=== PATIENT | female | born 1945 | race Caucasian/White ===

== ENCOUNTER 2020-11-13 17:52 | Emergency (ER) | payer MEDICARE, BC ==
[~2020-11-13] VITALS: Ht 154.9 cm; Wt 56.7 kg
[2020-11-13] MEDS ORDERED: CLOP75TA15 PO (18:15)
[2020-11-13] MEDS ORDERED: ASPI81TA31 PO (18:15)
--- NOTE | 2020-11-13 18:45 | NUR ---
PT IS IN ROOM #3. DR ELENA EVALUATED THE PT.
--- NOTE | 2020-11-13 18:59 | NUR ---
REPORT WAS GIVEN TO [employer] MANAGER RN.
[2020-11-13] MEDS ORDERED: MAG HYDROX/AL HYDROX/SIMETH 30 ML LIQUID UDC PO ONE (19:15)
[2020-11-13] MEDS ORDERED: MAG HYDROX/AL HYDROX/SIMETH 30 ML LIQUID UDC ONE (19:26)
[2020-11-13] MEDS ORDERED: MAGNESIUM HYDROXIDE 30 ML LIQUID UDC PO ONE (19:45)
[2020-11-13] MEDS ORDERED: MAGNESIUM HYDROXIDE 30 ML LIQUID UDC ONE (19:53)
[2020-11-13] MEDS ORDERED: MAGN296S70 PO (19:59)
[2020-11-13] MEDS ORDERED: TRAM50TA2 PO (19:59)
[2020-11-13] MEDS: TRAMADOL HCL 50 MG TABLET PO ONE ×2 (20:37→20:49)
[2020-11-13] MEDS ORDERED: TRAMADOL HCL 50 MG TABLET ONE (20:55)
[2020-11-13 21:03] VITALS: BP 145/76
--- NOTE | 2020-11-13 21:03 | NUR ---
Patient discharged to home in stable condition WITH SON TAKING PATIENT HOME. Written and verbal after care instructions given. Patient verbalizes understanding of instructions. Stressed follow up or return to ER for worsening s/s.
== END 2020-11-13 21:04 | disposition home or self-care (01) ==
LOC: ER 17:55
DX: S32.019A Unspecified fracture of first lumbar vertebra, initial encounter for closed fracture (principal); W18.11XA Fall from or off toilet without subsequent striking against object, initial encounter; Y93.E8 Activity, other personal hygiene; Y92.012 Bathroom of single-family (private) house as the place of occurrence of the external cause; Y99.8 Other external cause status; M85.88 Other specified disorders of bone density and structure, other site; E78.5 Hyperlipidemia, unspecified; Z88.0 Allergy status to penicillin; Z88.2 Allergy status to sulfonamides
CPT/HCPCS: 72110; A4217; A4663